=== PATIENT | male | born 1990 | race Hispanic/Latino ===

== ENCOUNTER 2024-04-05 10:18 | Emergency (ER) | payer SELFPAY ==
[~2024-04-05] VITALS: Ht 175.3 cm; Wt 95.3 kg
[2024-04-05] MEDS: dexaMETHasone SOD PHOSPHATE 4 MG/ML 1ML VIAL IM ONE (10:55)
[2024-04-05] MEDS: acetaMINOPHEN 500 MG TABLET PO ONE (10:56)
--- NOTE | 2024-04-05 11:15 | ERN ---
General Chief Complaint: Headache Stated Complaint: HEADACHE Time Seen by MD: 10:22 Source: patient History of Present Illness Initial Comments PATIENT IS A 33-YEAR-OLD GENTLEMAN COMING IN TO BE EVALUATED FOR FACIAL DISCOMFORT FACIAL PAIN. PATIENT STATES THAT THESE SYMPTOMS HAS BEEN ONGOING FOR A COUPLE OF DAYS. HE ALSO STATES THAT HE HAS BEEN HAVING NASAL CONGESTION. Allergies: Coded Allergies: No Known Drug Allergies (Unverified Allergy, Unknown, 04/05/24) Past Medical History Past Medical History: No Pertinent History Past Surgical History: Other Surgical History Other: LFT TIBIAL REPAIR ROS Dictation CONSTITUTIONAL: NO CHILLS, NO FEVER, NO WEAKNESS, NO DIAPHORESIS, NO MALAISE. HEAD/FACE: NO SIGNS OF TRAUMA. EENT: NO EYE PAIN, NO BLURRED VISION, NO TEARING, NO DOUBLE VISION, NO EAR PAIN, NO EAR DISCHARGE, NO NOSE PAIN, NO NASAL CONGESTION, NO THROAT PAIN, NO THROAT SWELLING, NO MOUTH PAIN. RESPIRATORY: NO COUGH, NO ORTHOPNEA, NO SOB, NO STRIDOR, NO WHEEZING. CARDIOVASCULAR: NO CHEST PAIN, NO EDEMA, NO PALPITATIONS, NO SYNCOPE. GASTROINTESTINAL/ABDOMINAL: NO ABDOMINAL PAIN, NO CONSTIPATION, NO DIARRHEA, NO NAUSEA, NO VOMITING. GENITOURINARY: NO ABNORMAL DISCHARGE, NO DYSURIA, NO FREQUENT URINATION, NO HEMATURIA. NO COMPLAINTS OF PAIN IN THE GENITALS. MUSCULOSKELETAL: NO BACK PAIN, NO GOUT, NO JOINT PAIN, NO JOINT SWELLING, NO MUSCLE PAIN, NO MUSCLE STIFFNESS, NO NECK PAIN. INTEGUMENTARY: NO CHANGE IN COLOR, NO CHANGE IN HAIR/NAILS, NO DRYNESS, NO LESION, NO LUMPS, NO RASH. NEUROLOGICAL/PSYCH: NO ANXIETY, NOT DEPRESSED, NO EMOTIONAL PROBLEM, NO HEADACHE, NO NUMBNESS, NO PRE-EXISTING DEFICIT, NO HISTORY OF SEIZURES, NO TREMORS, NO WEAKNESS. HEMATOLOGIC/LYMPHATIC: NOT ANEMIC, NO HISTORY OF BLOOD CLOTS, NO APPARENT BLEEDING, NO BRUISING, GLANDS NOT SWOLLEN. ALL SYSTEMS NEGATIVE, EXCEPT NOTED. Physical Exam Physical Exam Dictation VITAL SIGNS: REVIEWED. GENERAL APPEARANCE: ALERT, ORIENTED X3, NO ACUTE DISTRESS, OBESE. HEAD AND FACE: Tenderness on the left maxillary and left frontal sinuses EYES: PERRL, PINK CONJUNCTIVAS, EYELID NO TRAUMA, ANTERIOR CHAMBER CLEAR. EARS: PINNAS INTACT AND NO SIGNS OF TRAUMA OR ERYTHEMA. EAR CANALS CLEAR AND NO DISCHARGE. TMS ERYTHEMA. NOSE: NO DISCHARGE, NO BLEEDING. BILATERAL NASAL TURBINATE SWELLING OROPHARYNX: MOUTH NORMAL, TEETH NO CARIES, TONGUE PINK. PHARYNX ERYTHEMA. TONSILS NO EXUDATES, NO ABSCESSES NOTED. MUCOUS MEMBRANE MOIST. NECK: SUPPLE, NON-TENDER, NO THYROMEGALY, NO MASSES, NO JVD, NO BRUITS. BREAST: DEFERRED. CHEST: NO TENDERNESS, NO CREPITUS, NO PARADOXICAL MOVEMENT, NO RETRACTIONS. LUNGS: CLEAR, WELL-VENTILATED, SYMMETRIC, NO RALES, NO WHEEZING, NO RHONCHI, NO STRIDOR, GOOD BREATH SOUNDS BILATERALLY. HEART: REGULAR RATE, REGULAR RHYTHM, NO MURMUR, NO GALLOPS. VASCULAR: NO PERIPHERAL EDEMA. ABDOMEN: SOFT, POSITIVE BOWEL SOUNDS, NONDISTENDED, NO GUARDING, NONTENDER, NO REBOUND, NO MASSES NO HEPATOMEGALY, NO SPLENOMEGALY, NO BARNES'S SIGN, NO HERNIAS. RECTAL: DEFERRED. GENITAL: DEFERRED. NEUROLOGICAL: NORMAL SPEECH, GROSS MOTOR FUNCTION INTACT, GROSS SENSORY FUNCTION INTACT. MUSCULOSKELETAL: NECK NONTENDER, FULL RANGE OF MOTION, BACK NONTENDER, FULL RANGE OF MOTION. EXTREMITIES: NONTENDER, FULL RANGE OF MOTION. SKIN: COLOR PINK, DRY, NO TURGOR, NO RASH, NO LACERATIONS, NO ABRASIONS, NO CONTUSIONS. LYMPHATICS: DEFERRED. Results Laboratory and Microbiology Labs Reviewed?: Yes MDM MDM: Differential diagnosis: Sinusitis, nasal congestion, URI, Patient is a 33-year-old gentleman coming in to be evaluated for left facial discomfort. Along with this patient states he has been having nasal congestion and URI symptoms. On physical exam bilateral nasal turbinate swelling as well as oropharyngeal erythema and tympanic membrane erythema. Patient will be discharged with a diagnosis of acute sinusitis. Medication will be provided for symptomatic relief as well as antibiotics. I advised him appropriate follow up with PCP in 1-2 days for ongoing management evaluation. ED Course Orders Procedure Category Date Status Time Acetaminophen 500mg PHA 04/05/24 Complete Tab (Tylenol 500mg T 10:30 Dexamethasone 4mg/Ml PHA 04/05/24 Complete 1ml Vial (Dexametha 10:30 Current Medications Medications (Trade) Dose Ordered Sig/Daya Route PRN Reason Start Time Stop Time Status Last Admin Dose Admin Acetaminophen (TYLenol 500MG TAB) 1,000 mg ONCE ONCE PO 04/05/24 10:30 04/05/24 10:31 DC 04/05/24 10:56 Dexamethasone Sodium Phosphate (dexaMETHasone 4MG/ML 1ML VIAL) 4 mg ONCE ONCE IM 04/05/24 10:30 04/05/24 10:31 DC 04/05/24 10:55 Vital Signs Date Time Temp Pulse Resp B/P (MAP) Pulse Ox O2 Delivery O2 Flow Rate FiO2 04/05/24 10:21 97.9 81 16 148/100 98 Room Air 0 04/05/24 10:21 97.9 81 16 148/100 100 Room Air* 0 21 DX & DISP Disposition: Discharge Departure Impression: Primary Impression: Sinusitis chronic, frontal Condition: Stable Scripts Naproxen Sodium (Naproxen Cr) 500 Mg Tbmp.24hr 500 MG PO BID for 7 Days, #14 TAB.SR Prov: JAMI ARIZA MD 04/05/24 Fluticasone Propionate (Flonase Nasal [place]) 50 Mcg/Actuation [place] 2 SPRAY NS DAILY, #16 GM 0 Refills Prov: JAMI ARIZA MD 04/05/24 Amoxicillin/Potassium Clav (Amox Tr-K Clv 875-125 mg Tab) 875 Mg-125 Mg Tablet 1 TAB PO BID for 10 Days, #20 TAB 0 Refills Prov: JAMI ARIZA MD 04/05/24 Additional Instructions: FOLLOW-UP WITH PRIMARY CARE PROVIDER IN 1 TO 2 DAYS. TAKE MEDICATIONS DIRECTED HERE IN THE EMERGENCY ROOM. OKAY TO CONTINUE HOME MEDICATIONS UNLESS OTHERWISE DISCUSSED DURING YOUR VISIT IN THE EMERGENCY ROOM TODAY. RETURN TO YOUR NEAREST EMERGENCY ROOM IF SYMPTOMS WORSEN OR IF THERE IS NO IMPROVEMENT. CALL 911 IF YOU NEED IMMEDIATE ASSISTANCE. TAKE TYLENOL [id number] NEEDED AND IF NO CONTRAINDICATIONS ARE PRESENT. INCREASE ORAL HYDRATION. A WOUND CULTURE OR URINE CULTURE WAS ORDERED HERE IN THE EMERGENCY ROOM DEPARTMENT PLEASE FOLLOW-UP WITH PRIMARY CARE PROVIDER AND ADVISE THEM TO GET REPEAT PORTS FROM OUR FACILITY. IF YOU HAD ANY URI WRAP/SPLINTS THAT WERE APPLIED HERE, PLEASE DO NOT REMOVE THEM UNTIL YOU SEE YOUR PRIMARY CARE OR SPECIALTY. Referrals: Referrals: MELIZA HANNA MD Time of Disposition: 11:36 JAMI ARIZA MD Apr 05, 2024 11:15
[2024-04-05] MEDS ORDERED: AMOX1TAB16 PO (11:37)
[2024-04-05] MEDS ORDERED: NAPR-1084 PO (11:37)
[2024-04-05] MEDS ORDERED: FLUT16H NS (11:37)
[2024-04-05 12:05] VITALS: BP 141/90; PULSE 80; RESP 16; TEMP 97.9; O2SAT 98
== END 2024-04-05 12:31 | disposition home or self-care (01) ==
LOC: EDH 10:18
DX: J32.1 Chronic frontal sinusitis (principal); Z98.890 Other specified postprocedural states
CPT/HCPCS: 99283; 96372; J1100